=== PATIENT | female | born 1970 ===

== ENCOUNTER 2021-12-17 05:28 | Day surgery (SDC) | payer BC, OTHER ==
[~2021-12-17 05:28] MED LIST: Sodium Chloride 0.9% 10 ML Syringe FLUSH SCH
[2021-12-17] MEDS ORDERED: fentaNYL 100 MCG/2 ML SDV IV ONE ×3 (05:29→06:36)
[2021-12-17] MEDS ORDERED: Midazolam 1 MG/ML 2 ML SDV IV ONE ×7 (05:29→06:45)
[2021-12-17] MEDS ORDERED: Sodium Chloride 0.9% 10 ML Syringe FLUSH PRN (06:00)
[2021-12-17] MEDS ORDERED: Dextrose 5%-0.45% NaCl 1,000 ML IV SCH (06:00)
[2021-12-17] MEDS ORDERED: Midazolam 1 MG/ML 2 ML SDV ONE (06:13)
[2021-12-17] MEDS ORDERED: fentaNYL 100 MCG/2 ML SDV ONE (06:13)
== END 2021-12-17 09:00 | disposition home or self-care (01) ==
LOC: DL.ENDO 05:28
PROVIDERS: ATTEND Internal Medicine Gastroenterology
DX: K57.30 Diverticulosis of large intestine without perforation or abscess without bleeding (principal); K64.8 Other hemorrhoids; D50.9 Iron deficiency anemia, unspecified
CPT/HCPCS: 45378; J2250; J3010; J7042